=== PATIENT | female | born 1960 | race Caucasian/White ===

== ENCOUNTER → 2019-10-02 | Outpatient (CLI) | payer OTHER ==
[~2019-10-02] MED LIST: GADOBUTROL 10 MMOL/10 ML (GADAVIST) VIAL IV ONE
[2019-10-02 12:38] LABS: BUN/CREATININE RATIO 19; CREATININE SERUM 0.69 MG/DL (0.60-1.30); GFR ESTIMATED > 60
--- NOTE | 2019-10-02 13:25 | Diagnostic Imaging Report ---
PROCEDURE: CT sinuses without contrast TECHNIQUE: Multiple contiguous axial images were obtained through the sinuses without the use of intravenous contrast. Coronal and sagittal reformations were then performed. Auto Exposure Controls were utilized during the CT exam to meet ALARA standards for radiation dose reduction. INDICATION: Chronic sinusitis. Left neck mass. COMPARISON: None available. FINDINGS: Nasal cavity: There is mild rightward deviation of the osseous nasal septum with a leftward osseous nasal spur. Trace mucosal thickening within the floor of the nasal cavity. Paranasal sinuses: The bilateral maxillary, sphenoid, ethmoid, and frontal sinuses are all clear. Sinus drainage pathways: The frontal recesses are patent bilaterally. The ostiomeatal units are patent. Sphenoethmoidal recesses are clear. Other: Orbits are normal in appearance. No space-occupying mass within the visualized aspects of the brain. The neck is not included in the [id number] of the CT sinuses. IMPRESSION: 1. No paranasal sinus disease. 2. Sinus drainage pathways are widely patent. Dictated by: Dictated on workstation # [id number]
--- NOTE | 2019-10-02 14:53 | Diagnostic Imaging Report ---
PROCEDURE: MRI neck with and without contrast. TECHNIQUE: Multiplanar, multisequence MRI of the neck was performed with and without contrast. INDICATION: Left-sided neck mass. COMPARISON: CT sinuses on 10/02/2019.. Findings: In the area of palpable abnormality in the left neck no distinct soft tissue mass is seen. However, a nonencapsulated focus of subcutaneous lipomatous tissue is visualized, which may represent unencapsulated lipoma. No suspicious features are associated with this. No enhancing masses or fluid collections are seen in the neck. The posterior nasopharynx and oropharynx demonstrate appropriate symmetry. There is no displacement of the parapharyngeal fat planes. There is no abnormal process evident within the prevertebral or retropharyngeal space. There is no evidence of abnormal thickening of the epiglottis or aryepiglottic folds. The vocal folds appear symmetric. The parotid, submandibular and thyroid gland are unremarkable. No pathologically enlarged cervical lymph nodes are evident. No focal inflammatory changes are demonstrated. The vascular structures the neck demonstrate no evidence of high-grade stenosis on this nondedicated exam. Note is made of a retropharyngeal course of the bilateral ICAs. The visualized lung apices are clear. The visualized intracranial contents demonstrate no evidence of pathologic intracranial enhancement or intracranial mass effect. Visualized orbital contents are unremarkable. The visualized paranasal sinuses are clear. The mastoids and middle ears are clear. No acute osseous abnormality in the cervical spine. Impression: 1. Unencapsulated lipomatous tissue in the area of palpable abnormality in the left neck. 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 No enhancing masses or fluid collections are visualized. No pathologically enlarged lymphadenopathy in the neck. 2. Appropriate symmetry of the aerodigestive tract. Dictated by: Dictated on workstation # [id number]
== END ==
LOC: RAD 12:00
PROVIDERS: ATTEND Otolaryngology Otolaryngology/Facial Plastic Surgery
DX: J32.9 Chronic sinusitis, unspecified (principal); R22.1 Localized swelling, mass and lump, neck
CPT/HCPCS: 36415; 70486; 70543; 82565; 84520